=== PATIENT | male | born 1990 | race Two or more races ===

== ENCOUNTER 2021-06-10 20:27 | Emergency (ER) | payer BC ==
[~2021-06-10] VITALS: Ht 172.7 cm; Wt 94.0 kg
[2021-06-10] MEDS ORDERED: ASPIRIN 81MG TABLET PO ONE (20:45)
[2021-06-10 21:52] LABS: BASOPHILS % 0.5 % (0.0-2.0); EOSINOPHILS % 1.4 % (0.0-5.0); HEMOGLOBIN. 15.1 g/dL (14.0-18.0); LYMPHOCYTES % 29.3 % (20.0-50.0); MEAN CORPUSCULAR HEMOGLOBIN 29.6 pg (28.0-32.0); MEAN CORPUSCULAR VOLUME 86.3 fL (80.0-94.0); MEAN PLATELET VOLUME 8.2 fl (7.4-10.4); MONOCYTES % 6.7 % (2.0-8.0); NEUTROPHILS % 62.1 % (40.0-76.0); PLATELET 298 x1000/uL (130-400); RED CELL DISTRIBUTION WIDTH 12.3 % (11.6-14.6)
[2021-06-10 21:54] LABS: CHLORIDE 107 mEq/L (98-107)
[2021-06-10 21:58] LABS: ETHANOL BLOOD < 10 mg/dL
[2021-06-11 00:40] VITALS: BP 123/74
== END 2021-06-11 00:41 | disposition home or self-care (01) ==
LOC: ER 20:27
DX: R07.89 Other chest pain (principal); K21.9 Gastro-esophageal reflux disease without esophagitis; F17.200 Nicotine dependence, unspecified, uncomplicated
CPT/HCPCS: 36415; 71045; 80053; 80320; 83880; 84484; 85025; 85379; 93005; 99285; 99406; G0480